=== PATIENT | male | born 1985 | race Caucasian/White ===

== ENCOUNTER 2018-02-27 23:00 | Emergency (ER) | payer BC ==
--- NOTE | 2018-02-27 23:20 | EDM.PDOC ---
ED HPI GENERAL MEDICAL PROBLEM - General Chief Complaint: Chest Pain Stated Complaint: CHEST PAIN Time Seen by Provider: 02/27/18 23:04 Source of Information: Reports: Patient History Limitations: Reports: No Limitations - History of Present Illness INITIAL COMMENTS - FREE TEXT/NARRATIVE: On saturday he had an episode where he had room spinning dizziness. This did go away on it's own. Tonight he had been working out at the gym working on his legs when he started having dizziness again and this time he had some central chest pain and felt that he had something stuck there. That feeling has resolved but he is still having some chest pain and the dizziness resolved also. He did go to the chiropractor today and had his neck adjusted as he has been having some headaches. He feels this has improved some. He denies any SOB , nausea or vomiting with it. Location: Reports: Chest Associated Symptoms: Denies: Cough, Fever/Chills, Shortness of Breath Treatments OYSTER OPENER: Reports: Other (see below) Other Treatments OYSTER OPENER: EXCEDRIN Chest Pain Score (Numeric/FACES): 4 - Related Data Allergies Allergy/AdvReac Type Severity Reaction Status Date / Time No Known Allergies Allergy Verified 02/27/18 23:09 Home Meds: Home Meds . [No Known Home Meds] 02/27/18 [History] Past Medical History HEENT History: Reports: Otitis Media Respiratory History: Reports: Other (See Below) Other Respiratory History: NODULE TO LUNG - Past Surgical History Musculoskeletal Surgical History: Reports: Other (See Below) Other Musculoskeletal Surgeries/Procedures:: CYST REMOVAL IN BACK Social & Family History - Tobacco Use Smoking Status *Q: Never Smoker - Caffeine Use Caffeine Use: Reports: None - Recreational Drug Use Recreational Drug Use: No - Living Situation & Occupation Living situation: Reports: , with Family Occupation: Employed ED ROS GENERAL - Review of Systems Review Of Systems: See Below Constitutional: Denies: Fever, Chills, Diaphoresis HEENT: Reports: No Symptoms Respiratory: Denies: Shortness of Breath, Cough Cardiovascular: Reports: Chest Pain. Denies: Dyspnea on Exertion GI/Abdominal: Reports: No Symptoms : Reports: No Symptoms Musculoskeletal: Reports: Neck Pain Skin: Reports: No Symptoms Neurological: Reports: No Symptoms ED EXAM, DIZZINESS - Physical Exam Exam: See Below Exam Limited By: No Limitations General Appearance: Alert, WD/WN, No Apparent Distress Ears: Normal External Exam, Normal Canal, Normal TMs Nose: Normal Inspection Throat/Mouth: Normal Inspection, Normal Oropharynx, No Airway Compromise Head Exam: Atraumatic, Normocephalic Neck: Normal Inspection, Supple, Non-Tender, Full Range of Motion Respiratory/Chest: No Respiratory Distress, Lungs Clear, Normal Breath Sounds Cardiovascular: Regular Rate, Rhythm, No Edema, No Murmur GI/Abdominal: Normal Bowel Sounds, Soft, Non-Tender, No Organomegaly Neurological: Alert, Normal Mood/Affect, Oriented x 3 Back Exam: Normal Inspection Extremities: Normal Inspection Psychiatric: Normal Affect Skin Exam: Warm, Dry, Intact. No: Diaphoretic, Rash Course - Vital Signs Last Recorded V/S: Last Vital Signs Temp 98.9 F 02/27/18 23:05 Pulse 77 02/27/18 23:05 Resp 18 02/27/18 23:05 BP 153/86 H 02/27/18 23:05 Pulse Ox 100 02/27/18 23:05 - Orders/Labs/Meds Orders: Active Orders 24 hr Category Date Time Status BASIC METABOLIC PANEL,BMP [CHEM] Stat Lab 02/27/18 23:15 Ordered CBC WITH AUTO DIFF [HEME] Stat Lab 02/27/18 23:15 Ordered CREATINE KINASE,CK [CHEM] Stat Lab 02/27/18 23:15 Ordered LACTATE DEHYDROGENASE,LDH [CHEM] Stat Lab 02/27/18 23:15 Ordered TROPONIN I [CHEM] Stat Lab 02/27/18 23:15 Ordered - Re-Assessments/Exams Free Text/Narrative Re-Assessment/Exam: 02/28/18 00:03 Discussed normal labs and EKG results with patient. Departure - Departure Time of Disposition: 00:04 Disposition: Home, Self-Care 01 Condition: Good Clinical Impression: Anterior chest wall pain Inner ear dysfunction Qualifiers: Laterality: bilateral Qualified Code(s): H83.93 - Unspecified disease of inner ear, bilateral - Discharge Information *PRESCRIPTION DRUG MONITORING PROGRAM REVIEWED*: Not Applicable *COPY OF PRESCRIPTION DRUG MONITORING REPORT IN PATIENT KEVIN: Not Applicable Instructions: Chest Wall Pain Referrals: Arnaldo Mares PA-C [Primary Care Provider] - Additional Instructions: Meclizine 25 mg twice a day for the dizziness for the next week If dizziness is not resolved see chiropractor for canolith repositioning maneuver or call me in the clinic and I will set you up in physical therapy for it. Follow up with Bridger Mares in the clinic early next week for followup or sooner if pain changes Tylenol or advil as needed for discomfort. - Problem List & Annotations (1) Inner ear dysfunction SNOMED Code(s): 493981506 Code(s): H83.90 - UNSPECIFIED DISEASE OF INNER EAR, UNSPECIFIED EAR Status : Acute Priority: High Current Visit: Yes Qualifiers: Laterality: bilateral Qualified Code(s): H83.93 - Unspecified disease of inner ear, bilateral (2) Anterior chest wall pain SNOMED Code(s): 952472096 Code(s): R07.89 - OTHER CHEST PAIN Status: Acute Priority: High Current Visit: Yes - Problem List Review Problem List Initiated/Reviewed/Updated: Yes - My Orders Last 24 Hours: My Active Orders 02/27/18 23:15 BASIC METABOLIC PANEL,BMP [CHEM] Stat CBC WITH AUTO DIFF [HEME] Stat CREATINE KINASE,CK [CHEM] Stat LACTATE DEHYDROGENASE,LDH [CHEM] Stat TROPONIN I [CHEM] Stat - Assessment/Plan Last 24 Hours: My Active Orders 02/27/18 23:15 BASIC METABOLIC PANEL,BMP [CHEM] Stat CBC WITH AUTO DIFF [HEME] Stat CREATINE KINASE,CK [CHEM] Stat LACTATE DEHYDROGENASE,LDH [CHEM] Stat TROPONIN I [CHEM] Stat
[2018-02-27 23:58] LABS: CHLORIDE,CL 103 mEq/L (98-106); SODIUM,NA 141 mEq/L (136-145)
== END 2018-02-28 00:20 | disposition home or self-care (01) ==
LOC: CC.ED 23:00
DX: R07.89 Other chest pain (principal); H83.2X3 Labyrinthine dysfunction, bilateral
CPT/HCPCS: 36415; 80048; 82550; 83615; 84484; 85025; 93005; 99285